=== PATIENT | female | born 1985 | race African-American/Black ===

== ENCOUNTER → 2016-12-12 | Outpatient (CLI) | payer OTHER ==
[2016-04-22 11:29] VITALS: BP 116/76
[~2016-12-12] MED LIST: ZONI100C33 PO
== END | disposition home or self-care (01) ==
LOC: LAB 16:18
PROVIDERS: ATTEND Family Medicine
DX: G40.309 Generalized idiopathic epilepsy and epileptic syndromes, not intractable, without status epilepticus (principal)
CPT/HCPCS: 36415; 80175

== ENCOUNTER → 2017-10-09 | Outpatient (CLI) | payer OTHER ==
[2017-10-09] MEDS: GADOBUTROL 10 MMOL/10 ML VIAL IV (10:13)
== END | disposition home or self-care (01) ==
LOC: KCIC MRI 09:29
DX: G40.309 Generalized idiopathic epilepsy and epileptic syndromes, not intractable, without status epilepticus (principal)
CPT/HCPCS: 70553; A9585